=== PATIENT | male | born 1985 | race Caucasian/White ===

== ENCOUNTER 2023-11-26 04:42 | Emergency (ER) | payer OTHER, SELFPAY ==
[2023-11-26 04:43] VITALS: BP 115/78
[2023-11-26 04:46] VITALS: BP 115/78; BMI 34.1
[2023-11-26 04:54] LABS: % Basophils 0.8 % (0-2); % Eosinophils 2.1 % (0-6); % Immature Granulocytes 0.2 % (0-0.5); % Lymphocytes 45.7 % (20.5-51.1); % Monocytes 10.9 % (1.7-9.3); % Neutrophils 40.3 % (42.2-75.2); Absolute Eosinophils 0.1 10^3/uL (0-0.7); Absolute Lymphocytes 2.4 10^3/uL (1.2-3.4); Absolute Monocytes 0.6 10^3/uL (0.1-0.6); Absolute Neutrophils 2.1 10^3/uL (1.4-6.5); Hemoglobin 13.4 g/dL (13.0-18.0); Mean Corp Hgb Conc. 35.3 g/dL (33.0-37.0); Mean Corpuscular Hgb 32.1 pg (27.0-31.0); Mean Corpuscular Volume 90.9 fL (80.0-94.0); Mean Platelet Volume 10.5 fL (7.4-10.4); Nucleated Red Blood Cells % 0 % (-); Platelet Count 186 10^3/uL (130-400); Red Blood Cell Count 4.18 10^6/uL (4.70-6.10); White Blood Cell Count 5.3 10^3/uL (4.8-10.8)
[2023-11-26 05:00] VITALS: BP 119/72
[2023-11-26 05:11] LABS: ALT (SGPT) 34 U/L (0-50); AST (SGOT) 29 U/L (17-59); Albumin 3.9 g/dl (3.5-5.0); Alkaline Phosphatase 48 U/L (38-126); Blood Urea Nitrogen 15 mg/dl (9-20); Carbon Dioxide 16 mmol/L (22-30); Chloride 108 mmol/L (98-107); Estimated Creatinine Clearance 110 ml/min; Glucose 130 mg/dl (70-99); Potassium 3.8 mmol/L (3.5-5.1); Sodium 140 mmol/L (135-145); Total Bilirubin 0.5 mg/dl (0.2-1.3); Total Protein 6.3 g/dl (6.3-8.2); eGFR > 60.00
[2023-11-26 05:17] LABS: Troponin I < 0.012 ng/ml
--- NOTE | 2023-11-26 05:51 | ED.GENMED ---
History of Present Illness
General
Chief Complaint: Anxiety
Source: patient and spouse
Exam Limitations: none
Time Seen by Provider: 11/26/23 05:51
Travel History
Have you had any contact with someone who has COVID-19?: No
Do you have any symptoms of coronavirus? Fever > 100 degrees, chills, cough, shortness of breath, sore throat, loss of taste or smell, muscle aches, or headache?: No
History of Present Illness
History of Present Illness:
38-year-old male states that 'I think I had a panic attack '. In reality patient's symptoms are that he felt lightheaded hot in bed. Had to go to the bathroom and urinate. Stood up beside his bed and went unconscious briefly. He did fall to the
floor and hit his head. He then woke up briefly but then briefly went back out again. No seizure activity noted. No postictal period. Only complaining of some general headache. No neck pain chest pain shortness of breath palpitations etc.
Patient does have a history of vasovagal syncope. He is under stress from work.
Past History
Past History
ED Past Medical History: Psychiatric (anxiety)
ED Past Surgical History: Other (Hernia surgery)
Social History
Alcohol: Occasional
Drug: None
Personal:
Living: with family
Employment: Employed ([employer])
Review of Systems
Review of Systems
All Other Systems: Not applicable
Constitutional: Denies fever
Respiratory: Reports no symptoms
Cardiac: Denies chest pain or palpitations
ABD/GI: Reports no symptoms; Denies bloody stools or black stools
Phy Exam
Physical Exam
Physical Exam:
GENERAL: Alert and oriented in no apparent distress. No scalp trauma.
EYE: Orbits normal. Extraocular muscles intact
NECK: Supple, nontender
ENT: Pharynx without erythema
CARDIAC: Regular rate and rhythm without any obvious murmurs.
LUNGS: Clear breath sounds,normal
ABDOMEN: Soft, without focal tenderness or distention
NEUROLOGICAL: Alert and oriented , grossly non-focal. Speech normal. Upper and lower extremity strength normal.
SKIN: Warm and dry, no rash or lesion, no discoloration, skin intact.
MUSCULOSKELETAL: No edema,no deformity.Good color
PSYCH: Normal and appropriate interaction.
Course
Orders/Labs/Results
Orders:
Orders
11/26/23 04:44
Electrocardiogram (*1) Urgent
Reason for Study: Chest Pain
EKG- Treatment ONCE
11/26/23 04:45
Complete Blood Count/With Diff Urgent
Comprehensive Metabolic Panel Urgent
Troponin I Urgent
11/26/23 06:04
CT Head W/o Iv Contrast Urgent
Comment:
Reason For Exam: syncope. head trauma
Cardiac Monitoring- Treatment ONCE
0.9% Sodium Chloride 1000 ml [Nss] 1,000 ml IV BOLUS
11/26/23 06:29
D-Dimer Urgent
11/26/23 06:53
EKG [Electrocardiogram (*1)] Urgent
Reason for Study: QTc Monitoring
EKG- Treatment ONCE
Abnormal Lab Results
11/26/23
04:45
RBC 4.18 L 10^6/uL
(4.70-6.10)
Hct 38.0 L %
(39.0-52.0)
MCH 32.1 H pg
(27.0-31.0)
MPV 10.5 H fL
(7.4-10.4)
Neutrophils % 40.3 L %
(42.2-75.2)
Monocytes % 10.9 H %
(1.7-9.3)
Chloride 108 H mmol/L
(98-107)
Carbon Dioxide 16 L mmol/L
(22-30)
Glucose 130 H mg/dl
(70-99)
11/26/23 04:45
11/26/23 04:45
Vital Signs
Initial and Last Documented VS:
Initial Vital Signs
BP
115/78
11/26/23 04:43
Last Documented Vital Signs
Temp Pulse Resp BP Pulse Ox
97.4 F 85 16 133/71 96
11/26/23 04:46 11/26/23 06:00 11/26/23 06:00 11/26/23 06:00 11/26/23 06:00
MDM/Problems Addressed
Differential Diagnosis Includes:
Very likely this was a vasovagal syncope. Not a panic attack. Although patient is under significant stress with work. Not describing a drop attacks syncope. Patient does have a slightly prolonged QT and is on psychiatric medications. We will
repeat this. Workup in progress including head CT for possible head trauma.
*EKG
Interpreted by ED Provider?: Yes
Interpretation: abnormal
Comparison EKG: no comparison EKG present
Heart Rate: 106
Rate: tachycardiac
Rhythm: sinus
[place]: normal axis
Interval: long QT
QRS Pattern: normal QRS
Ischemia: no ischemia
*Critical Care Note
Total Time (30-74mins, 75-104mins- exclusive of procedures): Not Applicable
Update Note
Update Note:
Patient is remained stable and nontoxic. Stable vital signs. Workup unremarkable. Discharged to follow-up. Describing vasovagal syncope. Reasonable to follow-up with his primary physician
Repeat EKG normal sinus rhythm no acute changes.
ED Attending Note
-
Portions of this chart may have been created with voice recognition software.� Occasional wrong word or��sound alike� substitutions may have occurred due to the inherent limitations of voice recognition software.
Discharge Plan
Departure
Patient Disposition: Home (Routine Discharge)
Date of Disposition: 11/26/23
Time of Disposition: 08:01
Patient with high blood pressure during this ER visit?: Yes
Discharge Problem:
Syncope, Closed head injury
Instructions: Syncope (Fainting) (DC), BLOOD PRESSURE
Prescriptions:
No Action
trazodone 50 mg Tablet
50 mg PO HS
venlafaxine [Effexor XR] 150 mg Capsule,Extended Release 24hr
225 mg PO DAILY
benztropine [Cogentin] 1 mg Tablet
1 mg PO HS
Vyvanse 50 mg Capsule
50 mg PO DAILY
buspirone
30 mg PO Q12H
oxycodone 5 mg tablet
5 mg PO Q4HPRN PRN (Reason: moderate to severe pain) Qty: 20 0RF
Rx Instructions:
Take 2 if needed
ondansetron HCl 4 mg tablet
4 mg PO TID 4 Days Qty: 12 0RF
Referrals:
James Wu DO [Family Provider] - Follow up in 2-3 days
Stand Alone Forms: Return to Work
Interventions
Interventions:
*Risk Screen - Suicide Last Done: 11/26/23 04:46
*General Assessment Last Done: 11/26/23 04:46
*Neglect/Abuse Screening Last Done: 11/26/23 04:46
ED- Fall Risk Assessment Last Done: 11/26/23 04:46
ED-Psychological Assessment Last Done: 11/26/23 04:46
[2023-11-26 06:00] VITALS: BP 133/71
[2023-11-26] MEDS: NSS 1000 IV (06:29)
[2023-11-26 06:53] LABS: D-Dimer < 0.27 ug/mlFEU (0.00-0.50)
[2023-11-26 07:08] VITALS: BP 118/87
[2023-11-26 08:00] VITALS: BP 138/98
== END 2023-11-26 08:56 | disposition home or self-care (01) ==
LOC: EMR 04:42
PROVIDERS: Emergency Medicine; EMERGENCY PHYSICIAN Emergency Medicine; FAMILY PHYSICIAN Family Medicine
DX: R55 Syncope and collapse (principal); S09.90XA Unspecified injury of head, initial encounter; W18.39XA Other fall on same level, initial encounter; F41.0 Panic disorder [episodic paroxysmal anxiety]; R42 Dizziness and giddiness
CPT/HCPCS: 99284; 70450; 80053; 84484; 85025; 85379; 93005

== ENCOUNTER → 2025-01-27 13:13 | Outpatient (REF) | payer OTHER, SELFPAY | LOC: HWRAD 13:13 | PROVIDERS: ATTENDING PHYSICIAN Family Medicine | DX: G54.2 Cervical root disorders, not elsewhere classified (principal); M54.2 Cervicalgia; M25.511 Pain in right shoulder | CPT/HCPCS: 72052; 73030 ==